=== PATIENT | female | born 1965 | race Caucasian/White ===

== ENCOUNTER → 2021-05-31 | Day surgery (SDC) | payer OTHER ==
[~2021-05-31] VITALS: Ht 157.5 cm; Wt 54.6 kg
[~2021-05-31] MED LIST: ALLERGY RELIEF10 M3 PO; ASPIRIN81 MG PO; COLESTIPOL HCL1 GM PO; COZAAR 25MG TAB25 MG PO; MENEST0.625 MG PO; PREVACID30 M1 PO; PROLIA60 MG/1 ML IM; SINGULAIR10 MG PO; VENTOLIN HFA18 GM INH; VITAMIN D31000 UNIT PO; VITAMIN E400 UNI4 PO
[2021-05-31 08:45] LABS: HGB 13.7 g/dl (12.5-16.0); MCH 30.8 pg (25.0-31.0); MCHC 33.4 g/dL (32.0-36.0); MCV 92.1 fL (78.0-100.0); MPV 10.7 fL (6.0-9.5); RBC 4.45 M/uL (4.20-5.40); RDW 13.3 % (11.5-14.0); WBC 10.5 K/uL (4.0-10.5)
[2021-05-31 09:08] LABS: ALBUMIN 3.5 g/dL (3.4-5.0); BILIRUBIN - TOTAL 0.3 mg/dL (0.2-1.0); BUN/CREAT RATIO (CALC) 12.7 RATIO; CREATININE 0.79 mg/dL (0.51-0.95); GLOBULIN (CALCULATION) 3.7 g/dL; POTASSIUM 3.9 mmol/L (3.5-5.1); TOTAL PROTEIN 7.2 g/dL (6.4-8.2)
== END | disposition home or self-care (01) ==
LOC: FAS 08:02
PROVIDERS: Surgery
DX: D12.3 Benign neoplasm of transverse colon (principal); K29.70 Gastritis, unspecified, without bleeding; K21.9 Gastro-esophageal reflux disease without esophagitis; K58.9 Irritable bowel syndrome, unspecified; K31.9 Disease of stomach and duodenum, unspecified; I10 Essential (primary) hypertension; F17.200 Nicotine dependence, unspecified, uncomplicated; Z79.899 Other long term (current) drug therapy
CPT/HCPCS: 36415; 80053; J1610; J2250; J2704; J7120